=== PATIENT | male | born 1960 | race Caucasian/White ===

== ENCOUNTER 2016-07-06 12:21 | Day surgery (SDC) | payer OTHER ==
[~2016-07-06] VITALS: Ht 175.3 cm; Wt 119.4 kg
[~2016-07-06 12:21] MED LIST: CeFAZolin Inj 3 GM in IV Premix 1 EACH IV ONE; GLIM4TAB2 PO; IBUP200C PO; LISI-567 PO; METF1000 PO
[2016-07-06] MEDS ORDERED: Propofol 10,000 mCg/mL 20 mL Inj ONE (12:22)
[2016-07-06] MEDS ORDERED: fentaNYL-PF 50 mCg/mL 2 mL Inj ONE (12:22)
[2016-07-06 12:58] VITALS: BP 156/85; PULSE 83; RESP 16; O2SAT 97
[2016-07-06] MEDS ORDERED: CeFAZolin Inj 2 gm / 50mL D5W IV ONE (13:10)
[2016-07-06] MEDS ORDERED: Insulin LISPRO 300 Unit/3 mL Inj ONE (13:42)
[2016-07-06] MEDS: Lactated Ringer's 1,000 ML IV SCH ×2 (13:46→15:35)
[2016-07-06] MEDS ORDERED: Insulin LISPRO 300 Unit/3 mL Inj SUBQ ONE (14:15)
--- NOTE | 2016-07-06 15:20 | PCM.HPANE ---
Patient Data Date of Service: Jul 06, 2016 Surgeon Admitting Provider: Attending Provider:Madhav Mayes DO Primary Care Physician:Giancarlo Gan MD Other Provider:Brady Bagley Anesthesia Reason for Visit Right Ring/Small Finger Stiffness Ht/WT & BMI Height (Feet): 5 Height (Inches): 9 Weight (Kilograms): 119.4 Body Mass Index 38.00 Allergies Coded Allergies: No Known Allergies (Unverified , 11/22/15) Past Anesthesia History Anesthesia History: Denies:: Abnormal Airway, Anesthesia Reactions, Difficult Intubation, Fam Anesthesia Reaction Diabetes History Hx Diabetes?: Yes Type of Diabetes: Type II Glycemic Control: Oral Medication Current Bedside Blood Glucose: 212 MRSA MRSA: No Medications Hypertension Medication: Yes Home Meds Incl Beta Liliana: No Reported Medications Ibuprofen 200 Mg [id number] Mg PO BID PRN For Pain Ref 0 07/04/16 Metformin (Glucophage)1,000 Mg Tablet1,000 Mg PO BID Ref 0 03/28/16 Lisinopril 20 Mg [id number] Mg PO DAILY 30 Days Ref 0 03/28/16 Glimepiride 4 Mg Tablet4 Mg PO DAILYAC #30 TABLET Ref 0 03/28/16 Discontinued Reported Medications Naproxen 500 Mg [id number] Mg PO BID PRN For Pain Ref 0 03/28/16 History HEENT History: Positive for:: Sinus Problem (minor sinus issues- lifelong) Denies:: Abnormal Airway Cataracts Difficult Intubation Hearing Problem Hx of Heart Problems?: Yes Cardiovascular History: Positive for:: Hypertension Denies:: AICD Congestive Heart Failure Heart Murmur Irregular Heartbeat Pacemaker Hx of Respiratory Problem?: No Respiratory History: Denies:: Asthma COPD Emphysema Oxygen Administration Pneumonia Tuberculosis Use of C-PAP Machine (sleep study done, sinus related no CPAP indicated) Hx Neurologic Problems?: No Neurological History: Denies:: CVA Headaches Multiple Sclerosis Parkinson's Disease Seizures Hx of GI Problems?: No Gastrointestinal History: Denies:: Cirrhosis Gastroesphageal Reflux Gastrointestinal Bleeding Heartburn Hepatitis Hiatal Hernia Rectal Bleeding Hx of Problems?: No Genitourinary History: Positive for:: Kidney Stones (prior hx- passed spontaneously) Denies:: Urinary Tract Infection Male Hx: Denies:: Prostate Problems Scrotal Mass Testicular Surgery Skin History: Denies:: History Skin Disorders? Pressure Ulcers Hx Musculoskeletal Problems?: Yes Musculoskeletal History: Positive for:: Back Injury (lami C4-5, C6-7) Musculoskeletal Trauma (right small finger current admission problem, prior surg 03/2016) Denies:: Joint Replacement Systemic Lupus Hx of Psycho/Social Problems?: No Psycho Social History: Denies:: Anxiety Hx Depression Hx Surgeries?: Yes (lami x 2, hand surg, ) Hx Any Other Health Problems?: Yes Other History: Denies:: Cancer Thyroid Disease History Blood Transfusions: Denies:: Blood Transfusions Hx Diabetes: YesBedside Blood Glucose: 212 Hx Alcohol Use: YesHx Substance Use: No Smoking Status: Former Smoker Have You Smoked inLast 12 mo: No Stop/Bang S-Snoring: Do You Snore Loudly: No T-Tired: feel tired, fatigued: No O-Obsered: Observed not breath: No P-Blood Pressure: treated: Yes B- Body Mass Index > 35 kg/m2: Yes A- Age over 50: Yes N- Neck Large Circumference: No G- Gender Male: Yes BREN Total Score: 4 BREN Risk Assessment: High Risk, =/>3 Yes BREN Category 4 OutPt Procedure: Yes Risk Assessment Category Category 1A: Patient has history of documented sleep apnea, and HAS NOT received any narcotic, sedative or anesthesia administration during this stay. Category 1B: Patient has history of documented sleep apnea, and HAS received any narcotic , sedative or anesthesia administration during this stay Category 2: Patient has SUSPECTED Obstructive Sleep Apnea, and HAS received any narcotic , sedative or anesthesia administration during this stay. Category 3: Patient has SUSPECTED Obstructive Sleep Apnea and HAS NOT received narcotic, sedative or anesthesia administration during this stay. Category 4: Outpatient in Procedural Areas with known sleep apnea or who screen positive for High Risk via the STOP/BANG questionnaire. Exam Exam Vital Signs Vital Signs Date Time Temp Pulse Resp B/P Pulse Ox O2 Delivery O2 Flow Rate FiO2 07/06/16 12:58 35.8 83 16 156/85 97 Room Air General Appearance: Alert, Oriented X3, Cooperative, No Acute Distress HEENT/AIRWAY: MP 1 Lungs: Clear to Auscultation, Normal Air Movement Heart: Exam Unremarkable, Regular Rate/Rhythm, Murmur (II/ systolic murmur) Meds/Labs/Diagnostics Admission Meds Current Medications Lactated Ringer's (Lr) 1,000 ml @ 120 mls/hr Q8H20M IV Last administered on 13:46; Start 07/06/16 at 05:00; Stop 07/06/16 at 13:19; Status DC Insulin Human Lispro (HumaLOG Insulin Inj) 300 unit STK-MED ONCE .ROUTE Last administered on 07/06/16 13:46; Start 07/06/16 at 13:42; Stop 07/06/16 at 13:43 ; Status DC Bedside Blood Glucose: 212 Plan Impression Patient chart reviewed, patient interviewed and anesthestic plan with risks, benefits, and alternatives discussed, and informed consent obtained. NPO Status: 07/06/17 1029 water ASA Physical Status: ASA3 Severe Disease Anesthetic Plan: Regional Block ([place]) Bene/Risks/Altern/Consents: Yes HP Complete Prior to Induction: Yes Bryan Colindres MD Jul 06, 2016 15:20
[2016-07-06] MEDS ORDERED: oxyCODONE-Acetamin 5-325 mg Tablet PO PRN (15:45)
[2016-07-06] MEDS ORDERED: Lidocaine 1%-Epi 1:100,000 20 mL Inj INFILTRATE ONE (16:01)
[2016-07-06] MEDS ORDERED: Lactated Ringer's 500 ML IV PRN (16:38)
[2016-07-06] MEDS ORDERED: Lactated Ringer's 1,000 ML IV SCH (16:38)
[2016-07-06] MEDS ORDERED: fentaNYL-PF 50 mCg/mL 2 mL Inj IVPUSH PRN (16:40)
[2016-07-06] MEDS ORDERED: hydrALAZINE 20 mg/mL Inj IVPUSH PRN (16:40)
[2016-07-06] MEDS ORDERED: MetoCLOpramide 5 mg/mL 2 mL Inj IVPUSH PRN (16:40)
[2016-07-06] MEDS ORDERED: Ondansetron 2 mg/mL 2 mL Inj IVPUSH PRN (16:40)
[2016-07-06] MEDS ORDERED: HYDROmorphone 1 mg/mL Inj IVPUSH PRN (16:40)
[2016-07-06] MEDS ORDERED: Dexamethasone 4 mg/mL Inj IVPUSH PRN (16:40)
[2016-07-06] MEDS ORDERED: Phenylephrine 10,000 mCg/mL Inj IVPUSH PRN (16:40)
[2016-07-06] MEDS ORDERED: Atropine 0.4 mg/mL Inj IVPUSH PRN (16:40)
[2016-07-06] MEDS ORDERED: EPHEDrine Sulfate 50 mg/mL Inj IVPUSH PRN (16:40)
[2016-07-06] MEDS ORDERED: Labetalol 5 mg/mL 4 mL Inj IV PRN (16:40)
--- NOTE | 2016-07-06 16:40 | PCM.ANEP2 ---
Post Anesthesia Evaluation ASA/CMS Post Anesthesia Date of Service: Jul 06, 2016 VS in Patient's Normal Range?: Yes Resp Stable; Airway Patent?: Yes CV Function & Hydration Stable: Yes Mental Status Recovered?: Yes Pain control Satisfactory?: Yes N/V Control Satisfactory?: Yes Bryan Colindres MD Jul 06, 2016 16:40
--- NOTE | 2016-07-06 16:40 | PCM.ANEP1 ---
Post Anesthesia Phase 1 PACU Phase 1 Assessment Date of Service: Jul 06, 2016 Vital Signs 36.2 109/85 73 16 96% RA Anesthetic Administered: Regional Block Level of Alertness: Awake, talking GAMBINO's with Equal Strength: Yes Pain: No Nausea or Vomiting: No Oxygen Delivery: Room Air Lungs: Clear to Auscultation, Normal Air Movement Bryan Colindres MD Jul 06, 2016 16:40
[2016-07-06 16:41] VITALS: BP 132/78; PULSE 77; RESP 14; O2SAT 98
[2016-07-06 17:30] VITALS: BP 112/70; PULSE 68; RESP 14; O2SAT 98
--- NOTE | 2016-07-08 00:08 | OP ---
[address] [address] OPERATIVE REPORT PATIENT: NETO ZAMARRIPA : 1960 MR#: [id number] ADMIT: 07/06/2016 JOB ID: [id number] DATE OF SURGERY: 07/06/2016 PREOPERATIVE DIAGNOSIS(ES): Right ring and small finger adhesions of the flexor tendons, status post repair. POSTOPERATIVE DIAGNOSIS(ES): Right ring and small finger adhesions of the flexor tendons, status post repair. PROCEDURE: Right ring and small finger flexor tenolysis at the wrist. SURGEON: Madhav Mayes D.O. SPRAY MACHINE LOADER: Jose Nails PA-C. The assistance of Jose Nails PA-C, was necessary for help with retraction during the case. ANESTHESIA: Saurav block. HISTORY: Patient is a 55-year-old male that sustained a rupture of his right small finger flexor digitorum profundus and a partial rupture of the ring finger. The patient underwent a repair. He did have a previous injury as a child, which likely led to the weakness in the tendon, which caused a rupture without an open wound. There was significant scarring originally at the interface between the tendons of the ring and the small finger. There was a partial laceration to the ring finger that was repaired as well as a full laceration of the small finger FDP tendon that was repaired. He progressed very slowly with therapy and had significant adhesions noted at the wrist crease. He was having difficulty with both the ring and small finger range of motion and, thus, we discussed proceeding with a tenolysis procedure constituting mainly at the wrist as, on physical examination, it appeared this was where most of the adhesions were occurring. He understood the risks include, but are not limited to neurovascular injury, tendon injury, infection, failure to improve range of motion, stiffness, persistent pain, which may require further intervention. Patient had all questions answered. Consent was signed and placed in the chart. PROCEDURE IN DETAIL: Patient was brought to the operative suite and placed supine on the operating room table. Surgical time-out was performed. Everyone in the room was in agreement. After appropriate anesthesia was obtained, a right upper arm tourniquet was applied and the right upper extremity was prepped and draped in a sterile fashion. The patient's previous incision overlying the carpal tunnel was utilized taking care only to cross just proximal to the wrist crease and not extending all the way up the previous incision. Dissection was carried down through the subcutaneous tissue. There was significant fibrous tissue and adhesions throughout the skin and soft tissue. The flexor digitorum superficialis to the ring finger was first identified with significant adhesions throughout the tendon. This was freed up circumferentially within the operative field. This allowed for exposure of the underlying flexor digitorum profundus to the ring and the small finger. Again, significant adhesions were found throughout and throughout the carpal tunnel. Tenolysis was performed. The patient was asked to flex his fingers down, but was sedated despite the Saurav block and unable to assist. Thus, the patient's tendons were pulled utilizing an Allis for the FDS and the FDP. The ring and the small finger were able to be brought to nearly 1 cm from tip to palm. Further dissection and tenolysis extended only to the extent of the carpal tunnel incision. Copious irrigation was then performed and the skin closed with 5-0 nylon in simple interrupted fashion. The patient was then placed in a bulky soft dressing. ESTIMATED BLOOD LOSS: Less than 1 cc. COMPLICATIONS: None. DISPOSITION: The patient tolerated the procedure well. Anesthesia was reversed. The patient was transferred back to recovery. POSTOPERATIVE PLAN: The patient is to start working with occupational therapy five times a week for the first two weeks, and then transition to three times a week. He is to start using his hand immediately. I will see him back in two weeks to re-evaluate his motion.
== END 2016-07-06 23:59 | disposition home or self-care (01) ==
LOC: SAS 12:21
PROVIDERS: ATTEND Orthopaedic Surgery
DX: L90.5 Scar conditions and fibrosis of skin (principal); L91.0 Hypertrophic scar; S66.811D Strain of other specified muscles, fascia and tendons at wrist and hand level, right hand, subsequent encounter; I10 Essential (primary) hypertension; E11.9 Type 2 diabetes mellitus without complications; Z79.84 Long term (current) use of oral hypoglycemic drugs; E29.1 Testicular hypofunction
CPT/HCPCS: 25295; J0690; J1815; J2250; J3010; J7120

== ENCOUNTER 2016-12-04 15:55 | Emergency (ER) | payer OTHER ==
[~2016-12-04 15:55] MED LIST changes: -CeFAZolin Inj 3 GM in IV Premix 1 EACH IV ONE
[2016-12-04 16:22] VITALS: BP 117/73; PULSE 90; RESP 16; O2SAT 97
--- NOTE | 2016-12-04 18:28 | ED.REPORT ---
HPI-Back Pain 40 and Over Date of Service Dec 04, 2016 ED Provider: Rikki Fisher PA-C Kamar is a 56-year-old male with a history of type II diabetes presenting the emergency department with chief complaint of left low back and hip pain. Patient reports a 3 month history of pain in his left hip and buttock. He can recall no specific injury but states it did worsen significantly in the last week. Denies numbness, tingling, weakness or pain in lower extremity. Denies fever, HIV, organ transplant, immunosuppression, recent surgery, recent infection, history of back surgery, surgical implants and IV drug use. Denies bowel/bladder dysfunction and saddle anesthesia. Denies urinary symptoms and history of cancer. Nursing Notes Stated Complaint: LOWER BACK LEFT HIP PAIN Chief Complaint: Back Pain or Injury Nursing Notes Reviewed: Yes Allergies: Coded Allergies: No Known Allergies (Unverified , 12/04/16) Scheduled Glimepiride (Glimepiride) 4 Mg Tablet 4 MG PO DAILYAC Lisinopril (Lisinopril) 20 Mg Tablet 20 MG PO DAILY Metformin (Glucophage) 1,000 Mg Tablet 1,000 MG PO BID Prednisone (PredniSONE) 50 Mg Tablet 50 MG PO DAILY Scheduled PRN Ibuprofen (Ibuprofen) 200 Mg Capsule 800 MG PO BID PRN PRN For Pain General Time Seen by MD: 16:47 Chief Complaint Other (left hip pain) Sudden in Onset?: No Past Medical History Past Medical History Reports: Diabetes mellitus Past Surgical History denies Smoking History Former Smoker Review of Systems Negative unless stated otherwise in history of present illness Physical Exam General: Well appearing, well developed, well nourished, no acute distress. Head: Atraumatic, normocephalic. Eyes: No scleral icterus or injection. No discharge. Vision grossly intact. ENT: Voice clear, hearing grossly intact. Respiratory: No respiratory distress, no increased work of breathing. Speaks in complete sentences. Skin: Warm and dry. Back: Normal to inspection, negative CVA tenderness, negative SI tenderness, negative midline spinous process tenderness. Left hip: Normal to inspection, minimal tenderness over the gluteus celestino. Excellent range of motion in rotation, flexion/extension, abduction/adduction. Left knee: Nontender, full range of motion. Neurological: Normal gait, toe walk, heel walk, Romberg. Patellar and Achilles reflexes present and equal B/L. Sensation to sharp touch intact at medial leg, dorsal foot and lateral foot B/L. negative seated straight leg raise, negative seated cross straight leg raise. Psychological: alert and oriented. Speech appropriate, linear and logical. Behavior appropriate. 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 Interpretation / Wet Read by: Interpret - Radiologist Re-Eval/Medical Decision Med Decision/Clinical Course 56-year-old male with a history of diabetes type II presented with a 3 month history of left hip and buttock pain worsening in the last week. He can recall no specific injury. Physical examination is reassuring with normal neurological examination, back normal to inspection and nontender. Signs are normal. Some minimal tenderness in the left gluteal. Negative tenderness over the greater trochanter. X-rays obtained which shows minimal arthritis. At this point I am reassured against fracture, avascular necrosis, trochanteric bursitis, paresthetica meralgia acute disc herniation, cauda equina, infection, hematoma, trauma, pyelonephritis, nephrolithiasis, AAA, cancer. I believe this is likely referred pain from the back. We will treat this with a burst of steroids, over- the-counter analgesia. Advise primary care follow-up. Patient verbalizes understanding of and consent to the plan. Discharge & Departure Impression: Primary Impression: Left hip pain Disposition: Home Discharge Condition All VS Reviewed: Yes Condition: Stable Patient Instructions: Hip Pain (ED) Additional Instructions: Evaluation for left hip pain in the emergency department includes interview, physical examination and x-ray all of which are reassuring that this is not caused by an immediately dangerous conditions such as fracture or avascular necrosis. I believe you are stable and safe to go home. We will treat this with a burst of steroids. I will write a prescription for prednisone 50 mg to be taken once a day for the next 4 days. The pain is best treated with 500 mg of naproxen (Aleve) every 12 hours, or 1000 mg of acetaminophen (Tylenol) every 6 hours. These drugs can be taken at the same time for more severe pain. Follow-up with your primary care provider in the next week or 2 to further assess your symptoms. Return to emergency department for any new or worsening symptoms including increasing pain, numbness or weakness in your leg, fever, loss of bowel/bladder function or numbness between your legs. Referrals: Giancarlo Gan MD (PCP) EDSupervising Provider for APC: Josh Hood DO copies to: Giancarlo Gan MD, Seth PA-C Dec 04, 2016 18:28
--- NOTE | 2016-12-04 18:30 | DRSVH ---
PROCEDURE: X-RAY LEFT HIP COMPLETE, MINIMUM TWO VIEWS ([id number]) INDICATIONS: 3 months left hip pain TECHNIQUE: 2 views of the hip were acquired. COMPARISON: None. FINDINGS: Bones: No fractures or dislocations. No suspicious bony lesions. The visualized pelvic ring appear s intact. Mild degenerative joint disease. Soft tissues: No suspicious soft tissue calcifications or masses. 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 Dictated by: Litzy Tristan M.D. on 12/04/2016 at 18:27 Approved by: Litzy Tristan M.D. on 12/04/2016 at 18:28
[2016-12-04] MEDS ORDERED: PRED50TA PO (18:44)
== END 2016-12-04 18:51 | disposition home or self-care (01) ==
LOC: SED 15:55
DX: M25.552 Pain in left hip (principal); E11.9 Type 2 diabetes mellitus without complications; Z79.84 Long term (current) use of oral hypoglycemic drugs; Z87.891 Personal history of nicotine dependence
CPT/HCPCS: 73502; 96372; 99284; J1885